=== PATIENT | male | born 1970 | race Caucasian/White ===

== ENCOUNTER 2024-08-24 06:17 | Day surgery (SDC) | payer BC, SELFPAY ==
[2024-08-24] VITALS (14 sets, daily range): BP systolic 96–139; BP diastolic 59–94; BMI 29.5
[2024-08-24] MEDS: NEURONTIN 600 MG PO (10:54)
[2024-08-24] MEDS: TYLENOL 1000 MG PO (10:54)
[2024-08-24] MEDS: HEPARIN 5000 UNITS SC (11:12)
[2024-08-24] MEDS: NORMOSOL-R/PLASMALYTE-A 1000 IV (11:22)
[2024-08-24 11:39] LABS: APTT 27.6 Sec (23.4-35.0)
[2024-08-24 12:11] LABS: INR 1.06; PT 14.3 Sec (11.4-14.6)
[2024-08-24 12:16] LABS: Glycohemoglobin (HgbA1c) 5.7 % (4.0-5.6)
[2024-08-24] MEDS: DILAUDID 0.25 MG IV ×3 (14:22→15:04)
== END 2024-08-24 16:24 | disposition home or self-care (01) ==
LOC: SDS 06:17
PROVIDERS: ATTENDING PHYSICIAN Surgery
DX: K35.80 Unspecified acute appendicitis (principal); K38.9 Disease of appendix, unspecified
CPT/HCPCS: 44970; 88304; 83036; 85610; 85730; 86850; 86900; 86901

== ENCOUNTER 2025-04-10 14:01 | Emergency (ER) | payer BC, SELFPAY ==
[2025-04-10 14:07] VITALS: BP 142/95
[2025-04-10 14:26] LABS: Hematocrit 43.2 % (39.0-52.0); Hemoglobin 14.9 g/dL (13.0-18.0); Mean Corp Hgb Conc. 34.5 g/dL (33.0-37.0); Mean Corpuscular Volume 82.1 fL (80.0-94.0); Nucleated Red Blood Cells % 0 % (-); Platelet Count 269 10^3/uL (130-400); Red Cell Dist. Width 13.1 % (11.5-14.5)
[2025-04-10 14:39] LABS: ALT (SGPT) 30 U/L (0-50); AST (SGOT) 26 U/L (17-59); Albumin 4.7 g/dl (3.5-5.0); Alkaline Phosphatase 57 U/L (38-126); Blood Urea Nitrogen 21 mg/dl (9-20); Calcium 9.0 mg/dl (8.4-10.2); Carbon Dioxide 25 mmol/L (22-30); Chloride 104 mmol/L (98-107); Glucose 118 mg/dl (70-99); Lipase 94 U/L (23-300); Potassium 3.7 mmol/L (3.5-5.1); Sodium 136 mmol/L (135-145); Total Protein 7.4 g/dl (6.3-8.2); eGFR > 60.00
[2025-04-10 17:23] VITALS: BMI 28.2
--- NOTE | 2025-04-10 17:30 | ED.GENMED ---
History of Present Illness
<Aditya Del Rio PA-C - Last Filed: 04/10/25 19:29>
General
Chief Complaint: Abdominal Symptoms
Time Seen by Provider: 04/10/25 17:17
History of Present Illness
History of Present Illness:
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
He had a large amount of symptoms earlier last week which seemed to improve but came back more recently. No abdominal pain. He did have diarrhea initially but this has resolved. No fevers.
Past History
<Aditya Del Rio PA-C - Last Filed: 04/10/25 19:29>
Past History
ED Past Medical History: None; Negative IDDM or NIDDM
ED Past Surgical History: None
Social History
Tobacco: Non-smoker
Alcohol: Occasional
Drug: None
Personal:
Living: with family
Employment: Employed
Family History
Family History: Other (Noncontributory)
Review of Systems
<Aditya Del Rio PA-C - Last Filed: 04/10/25 19:29>
Review of Systems
All Other Systems: ROS reviewed and negative except as documented in HPI and ROS
Phy Exam
<Aditya Del Rio PA-C - Last Filed: 04/10/25 19:29>
Physical Exam
Physical Exam:
GENERAL: Alert , in no apparent distress
NECK: Supple
ENT: o/p clr, mmm.
CARDIAC: Regular rate and rhythm .
LUNGS: Clear breath sounds bilaterally, no acute respiratory distress, no wheezes/rales/rhonchi
ABDOMEN: Soft, without focal tenderness, no r/g, no cvat
NEUROLOGICAL: Alert and oriented
SKIN: Warm and dry, skin intact.
MUSCULOSKELETAL: No edema, well perfused.
PSYCH: Normal and appropriate interaction.
Course
<Aditya Del Rio PA-C - Last Filed: 04/10/25 19:29>
Orders/Labs/Results
Orders:
Orders
04/10/25 14:15
Complete Blood Count/With Diff Urgent
Comprehensive Metabolic Panel Urgent
Lipase Urgent
04/10/25 17:28
0.9% Sodium Chloride 500 ml [Nss] 500 ml IV BOLUS
Iohexol [Omnipaque] See Protocol PO NOW STA
04/10/25 17:29
CT Abd/pel W Iv And Oral Contr Urgent
Comment:
Reason For Exam: vomiting, concern for bowel obstuction, prior surg
04/10/25 19:52
Urinalysis Reflex To Culture Urgent
Date Specimen was Collected: 04/10/25
Time Specimen was Collected: 19:44
Urine Microscopic Reflex Cult Urgent
Abnormal Lab Results
04/10/25 04/10/25
14:15 19:52
WBC 17.4 H 10^3/uL
(4.8-10.8)
Abs Immat Gran (auto) 0.1 H 10^3/uL
(0-0.05)
Absolute Neuts (auto) 14.5 H 10^3/uL
(1.4-6.5)
Absolute Monos (auto) 1.4 H 10^3/uL
(0.1-0.6)
Neutrophils % 83.2 H %
(42.2-75.2)
Lymphocytes % 7.6 L %
(20.5-51.1)
BUN 21 H mg/dl
(9-20)
Glucose 118 H mg/dl
(70-99)
Urine Bacteria (Reflex) Few A
(Negative)
Urine Albumin (Reflex) 1+ A
(Neg - Trace)
04/10/25 14:15
04/10/25 14:15
Vital Signs
Initial and Last Documented VS:
Initial Vital Signs
Temp Pulse Resp BP Pulse Ox
98.8 F 83 17 142/95 99
04/10/25 14:07 04/10/25 14:07 04/10/25 14:07 04/10/25 14:07 04/10/25 14:07
Last Documented Vital Signs
Temp Pulse Resp BP Pulse Ox
98.8 F 83 17 142/95 99
04/10/25 14:07 04/10/25 14:07 04/10/25 14:07 04/10/25 14:07 04/10/25 17:34
Huonglt;Reece Li PA-C - Last Filed: 04/10/25 20:10>
Orders/Labs/Results
Orders:
Orders
04/10/25 14:15
Complete Blood Count/With Diff Urgent
Comprehensive Metabolic Panel Urgent
Lipase Urgent
04/10/25 17:28
0.9% Sodium Chloride 500 ml [Nss] 500 ml IV BOLUS
Iohexol [Omnipaque] See Protocol PO NOW STA
04/10/25 17:29
CT Abd/pel W Iv And Oral Contr Urgent
Comment:
Reason For Exam: vomiting, concern for bowel obstuction, prior surg
04/10/25 19:52
Urinalysis Reflex To Culture Urgent
Date Specimen was Collected: 04/10/25
Time Specimen was Collected: 19:44
Urine Microscopic Reflex Cult Urgent
Abnormal Lab Results
04/10/25 04/10/25
14:15 19:52
WBC 17.4 H 10^3/uL
(4.8-10.8)
Abs Immat Gran (auto) 0.1 H 10^3/uL
(0-0.05)
Absolute Neuts (auto) 14.5 H 10^3/uL
(1.4-6.5)
Absolute Monos (auto) 1.4 H 10^3/uL
(0.1-0.6)
Neutrophils % 83.2 H %
(42.2-75.2)
Lymphocytes % 7.6 L %
(20.5-51.1)
BUN 21 H mg/dl
(9-20)
Glucose 118 H mg/dl
(70-99)
Urine Bacteria (Reflex) Few A
(Negative)
Urine Albumin (Reflex) 1+ A
(Neg - Trace)
04/10/25 14:15
04/10/25 14:15
Vital Signs
Initial and Last Documented VS:
Initial Vital Signs
Temp Pulse Resp BP Pulse Ox
98.8 F 83 17 142/95 99
04/10/25 14:07 04/10/25 14:07 04/10/25 14:07 04/10/25 14:07 04/10/25 14:07
Last Documented Vital Signs
Temp Pulse Resp BP Pulse Ox
98.8 F 83 17 142/95 99
04/10/25 14:07 04/10/25 14:07 04/10/25 14:07 04/10/25 14:07 04/10/25 17:34
<Aditya Del Rio PA-C - Last Filed: 04/10/25 19:29>
MDM/Problems Addressed
Differential Diagnosis Includes:
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
Overall, patient appears very well. Labs were obtained in triage and the patient is noted to have leukocytosis of 17.4. There is neutrophil predominance. His BUN is slightly elevated to 21. Normal creatinine of 0.9. On examination the patient's
abdomen is soft and nontender. Symptoms/findings may be secondary to viral gastroenteritis/food poisoning however given patient's prior surgical history with vomiting that has not improved over 5-6 days I am concerned for a possible bowel
obstruction. Given symptoms we will obtain a CT scan of the abdomen and pelvis with oral and IV contrast. Will also provide IV fluids.
<Aditya Del Rio PA-C - Last Filed: 04/10/25 19:29>
*Pulse Oximetry
SaO2: 99
Oxygen Mode of Delivery: Room air
<Reece Li PA-C - Last Filed: 04/10/25 20:10>
*Pulse Oximetry
Patient hypoxic: no
*Critical Care Note
Total Time (30-74mins, 75-104mins- exclusive of procedures): Not Applicable
<Reece Li PA-C - Last Filed: 04/10/25 20:10>
Update Note
Update Note:
Assumed care of patient pending CT of abdomen. CT of abdomen is negative for any acute abdominal status. No further vomiting. He has Zofran to take from the urgent care. No indication for admission. Suspect viral illness. Stable for discharge
ED Attending Note
<Aditya Del Rio PA-C - Last Filed: 04/10/25 19:29>
-
Portions of this chart may have been created with voice recognition software.� Occasional wrong word or��sound alike� substitutions may have occurred due to the inherent limitations of voice recognition software.
Discharge Plan
Departure
Patient Disposition: Home (Routine Discharge)
Date of Disposition: 04/10/25
Time of Disposition: 20:09
Patient with high blood pressure during this ER visit?: No
Discharge Problem:
Vomiting and diarrhea
Instructions: Nausea and Vomiting, Adult (DC)
Prescriptions:
No Action
white petrolatum Ointment
1 applic TOPICAL PRN PRN (Reason: cuts )
ibuprofen 200 mg Tablet
400 mg PO Q6H PRN (Reason: pain)
neomycin 500 mg Tablet
1 g PO . DIRECTED
Rx Instructions:
1400, 1500 and 2200
Suflave
1 unit PO . DIRECTED
metronidazole 500 mg Tablet
500 mg PO DIRECTED
Rx Instructions:
took at 1400, 1500 and 2200
Referrals:
NONE,* [Family Provider, Internal Medicine]
Activity Restrictions/Additional Instructions:
Drink plenty of clear liquids. Use Zofran as needed for nausea. Return if worse otherwise follow-up with your doctor
Interventions
Interventions:
*Risk Screen - Suicide Last Done: 04/10/25 14:03
*General Assessment Last Done: 04/10/25 14:09
*Neglect/Abuse Screening Last Done: 04/10/25 14:09
*ED COVID-19 Vaccine History Last Done: 04/10/25 14:09
*ED Influenza Vaccine History Last Done: 04/10/25 14:09
[facility] Fall Risk Assessment Tool Last Done: 04/10/25 17:20
VL-Fpdydu-Hldliovolo Assessment Last Done: 04/10/25 17:20
Discharge Date and Time
Print Language: MOLDOVAN
[2025-04-10] MEDS: NSS 500 IV (17:39)
[2025-04-10] MEDS: OMNIPAQUE 50 ML PO (17:39)
[2025-04-10 19:59] LABS: Urine Character Clear (Clear)
[2025-04-10 20:06] LABS: Urine Red Blood Cell 0-2 /HPF (0-2); Urine White Cell 0-2 /HPF (0-5)
[2025-04-10 20:12] VITALS: BP 121/78
== END 2025-04-10 20:21 | disposition home or self-care (01) ==
LOC: EMR 14:01
PROVIDERS: Physician Assistant; EMERGENCY PHYSICIAN Emergency Medicine
DX: R11.2 Nausea with vomiting, unspecified (principal); Z90.49 Acquired absence of other specified parts of digestive tract
CPT/HCPCS: 99284; 96360; 74177; 80053; 81003; 81015; 83690; 85025; Q9967